=== PATIENT | male | born 1975 | race Caucasian/White ===

== ENCOUNTER 2020-10-19 18:40 | Emergency (ER) | payer SELFPAY ==
[2020-10-19 20:18] LABS: HEMOGLOBIN 12.7 gm/dl (14.0-17.5); RED BLOOD COUNT 4.12 M/UL (4.20-5.50); WHITE BLOOD COUNT 10.8 K/UL (4.5-11.0)
[2020-10-19 21:04] LABS: BUN/CREATININE RATIO 18 (0-10)
== END 2020-10-20 07:51 | disposition home or self-care (01) ==
LOC: ER1 18:40
PROVIDERS: Family Medicine
DX: T43.621A Poisoning by amphetamines, accidental (unintentional), initial encounter (principal); I10 Essential (primary) hypertension; F17.210 Nicotine dependence, cigarettes, uncomplicated
CPT/HCPCS: 70450; 71045; 80053; 80307; 81001; 82550; 82553; 83874; 84484; 85025; 85610; 93005; 94760; 99285; J7030